=== PATIENT | female | born 1980 | race African-American/Black ===

== ENCOUNTER 2021-03-28 17:05 | Emergency (ER) | payer OTHER ==
[~2021-03-28] VITALS: Ht 170.2 cm; Wt 70.3 kg
[2021-03-28] MEDS ORDERED: NAPROXEN500 MG PO (19:23)
[2021-03-28] MEDS ORDERED: FLEXERIL PO (19:23)
[2021-03-28 19:29] VITALS: BP 128/75
== END 2021-03-28 19:30 | disposition home or self-care (01) ==
LOC: ER 17:05
DX: S39.012A Strain of muscle, fascia and tendon of lower back, initial encounter (principal); M54.2 Cervicalgia; Z98.890 Other specified postprocedural states; V49.88XA Car occupant (driver) (passenger) injured in other specified transport accidents, initial encounter; Y93.89 Activity, other specified; Y92.413 State road as the place of occurrence of the external cause; Y99.9 Unspecified external cause status